=== PATIENT | female | born 1975 | race Two or more races ===

== ENCOUNTER 2022-09-26 14:33 | Inpatient (IN) | payer OTHER ==
[~2022-09-26] VITALS: Ht 162.6 cm; Wt 81.6 kg
[2022-09-26] MEDS ORDERED: IRON159 MG (18:51)
[2022-09-28] MEDS ORDERED: TANDEM DUAL AC106 MG PO (13:22)
== END 2022-09-28 13:48 | disposition home or self-care (01) | DRG 761 ==
LOC: MEDI 14:33
PROVIDERS: ADMIT Internal Medicine Hematology & Oncology; ATTEND Internal Medicine Hematology & Oncology
PROC: 30233N1 Transfusion of Nonautologous Red Blood Cells into Peripheral Vein, Percutaneous Approach (ICD-10-PCS; principal; 2022-09-26)
DX: N93.9 Abnormal uterine and vaginal bleeding, unspecified (principal); D50.0 Iron deficiency anemia secondary to blood loss (chronic); E05.90 Thyrotoxicosis, unspecified without thyrotoxic crisis or storm

== ENCOUNTER 2022-10-19 07:27 | Inpatient (IN) | payer OTHER ==
[~2022-10-19] VITALS: Ht 162.6 cm; Wt 83.9 kg
[~2022-10-19 07:27] MED LIST: IRON159 MG; MEGESTROL ACETA40 MG PO; TANDEM DUAL AC106 MG PO
[2022-10-26] MEDS ORDERED: TANDEM PLUS CA1 EACH (14:49)
[2022-10-26] MEDS ORDERED: OMEPRAZOLE20 MG (14:49)
[2022-10-26] MEDS ORDERED: MEGESTROL ACETA40 MG (14:49)
[2022-10-26] MEDS ORDERED: FAMOTIDINE20 MG (14:49)
== END 2022-10-29 17:43 | disposition home or self-care (01) | DRG 743 ==
LOC: OB/GYN 10-26 07:00 → O/R 10-26 11:00 → OB/GYN 10-26 18:39 → SURH 10-26 22:00
PROVIDERS: Obstetrics & Gynecology; ADMIT Obstetrics & Gynecology; ATTEND Obstetrics & Gynecology
PROC: 0UT90ZZ Resection of Uterus, Open Approach (ICD-10-PCS; principal; 2022-10-26 07:00)
DX: D25.2 Subserosal leiomyoma of uterus (principal); Q51.28 Other and unspecified doubling of uterus; N72 Inflammatory disease of cervix uteri; D50.0 Iron deficiency anemia secondary to blood loss (chronic); Z20.822 Contact with and (suspected) exposure to COVID-19